=== PATIENT | male | born 1965 | race African-American/Black ===

== ENCOUNTER 2016-06-05 05:58 | Emergency (ER) | payer OTHER ==
[2016-06-05] MEDS ORDERED: OPTIRAY 350 100 ML VIAL HMH IV ONE (05:59)
[2016-06-05] MEDS ORDERED: CEFTRIAXONE 1 GM VIAL ONE (06:46)
[2016-06-05] MEDS ORDERED: METHYLPRED SOD SUCC 125 MG/2 ML VIAL ONE (06:46)
[2016-06-05] MEDS ORDERED: KETOROLAC 30 MG/ML VIAL ONE (06:47)
[2016-06-05] MEDS ORDERED: SODIUM CHLORIDE 0.9% 100 ML IV ONE (06:47)
== END 2016-06-05 08:57 | disposition home or self-care (01) ==
LOC: ER 05:58
DX: J02.9 Acute pharyngitis, unspecified (principal); J03.90 Acute tonsillitis, unspecified; Z79.899 Other long term (current) drug therapy; E03.9 Hypothyroidism, unspecified; I10 Essential (primary) hypertension
CPT/HCPCS: 36415; 70491; 80053; 82565; 85025; 86403; 87804; 87880; 96365; 96375; 99285; J0696; J1885; J2930; Q9967